=== PATIENT | male | born 1960 | race Caucasian/White ===

== ENCOUNTER 2017-03-24 05:47 | Emergency (ER) | payer OTHER ==
[2017-03-24] MEDS ORDERED: NORMAL SALINE 500 ML IV ONE (06:42)
[2017-03-24 07:02] LABS: ALANINE AMINOTRANSFERASE 36 U/L (21-72); ALBUMIN 3.9 g/dL (3.5-5.0); ALKALINE PHOSPHATASE 69 U/L (38-126); ANION GAP 8 (5-19); ASPARTATE AMINO TRANSFERASE 45 U/L (17-59); BILIRUBIN,DIRECT 0.4 mg/dL (0.0-0.4); BILIRUBIN,TOTAL 0.7 mg/dL (0.2-1.3); BLOOD UREA NITROGEN 14 mg/dL (7-20); CALCIUM 9.7 mg/dL (8.4-10.2); CARBON DIOXIDE 27 mmol/L (22-30); CHLORIDE 108 mmol/L (98-107); CREATINE KINASE 90 U/L (55-170); CREATININE RESULT 0.95 mg/dL (0.52-1.25); GLUCOSE 102 mg/dL (75-110); MAGNESIUM 2.3 mg/dL (1.6-2.3); POTASSIUM 4.6 mmol/L (3.6-5.0); SODIUM 142.8 mmol/L (137-145); TOTAL PROTEIN 7.5 g/dL (6.3-8.2)
[2017-03-24 07:08] LABS: ABSOLUTE BASOPHILS # (AUTO) 0.1 10^3/uL (0.0-0.2); ABSOLUTE EOSINOPHILS # (AUTO) 0.1 10^3/uL (0.0-0.6); ABSOLUTE LYMPHOCYTES (AUTO) 2.8 10^3/uL (0.5-4.7); ABSOLUTE MONOCYTES (AUTO) 0.8 10^3/uL (0.1-1.4); ABSOLUTE NEUT (AUTO) 9.1 10^3/uL (1.7-8.2); BASOPHILS % (AUTO) 0.7 % (0-2); EOSINOPHILS % (AUTO) 0.9 % (0-6); HEMATOCRIT 43.7 % (37.9-51.0); HEMOGLOBIN 14.8 g/dL (13.5-17.0); HGB HCT DIFFERENCE 0.7; LYMPHOCYTES % (AUTO) 21.5 % (13-45); MEAN CORPUSCULAR HEMOGLOBIN 32.3 pg (27.0-33.4); MEAN CORPUSCULAR HGB CONC 33.9 g/dL (32.0-36.0); MEAN CORPUSCULAR VOLUME 95 fl (80-97); MONOCYTES % (AUTO) 6.1 % (3-13); RED BLOOD COUNT 4.58 10^6/uL (4.35-5.55); RED CELL DISTRIBUTION WIDTH 14.7 % (11.5-14.0); SEGMENTED NEUTROPHILS % (AUTO) 70.8 % (42-78); WHITE BLOOD COUNT 12.9 10^3/uL (4.0-10.5)
[2017-03-24 07:13] LABS: CREATINE KINASE MB 1.65 ng/mL (<4.55)
--- NOTE | 2017-03-24 07:16 | RADIOLOGY REPORT (SQ) ---
EXAM DESCRIPTION: CHEST PA/LAT COMPLETED DATE/TIME: 03/24/2017 7:02 am REASON FOR STUDY: syncope COMPARISON: 01/25/2013 EXAM PARAMETERS: NUMBER OF VIEWS: two views TECHNIQUE: Digital Frontal and Lateral radiographic views of the chest acquired. RADIATION DOSE: NA LIMITATIONS: none FINDINGS: LUNGS AND PLEURA: No opacities, masses or pneumothorax. No pleural effusion. MEDIASTINUM AND HILAR STRUCTURES: No masses or contour abnormalities. HEART AND VASCULAR STRUCTURES: Heart normal size. No evidence for failure. BONES: No acute findings. HARDWARE: None in the chest. OTHER: No other significant finding. IMPRESSION: NO SIGNIFICANT RADIOGRAPHIC FINDING IN THE CHEST. TECHNICAL DOCUMENTATION: JOB ID: [id number] [employer]- All Rights Reserved
[2017-03-24 07:17] LABS: TROPONIN I < 0.012 ng/mL
--- NOTE | 2017-03-24 07:27 | ER Document Report ---
ED General - General Chief Complaint: Fainting Stated Complaint: PASSED OUT Time Seen by Provider: 03/24/17 06:19 TRAVEL OUTSIDE OF THE [place] IN LAST 30 DAYS: No - HPI Patient complains to provider of: Syncopal episode Notes: Patient coming in for evaluation of a syncopal episode. Patient states recently had a heart attack in November. Patient is under the care of Dr. Wilson cardiology at [facility]. Patient states recently had echo done of his heart states everything has been improving states that after his heart attack EF was measured at approximately 35%. Patient states no other new pathology patient states he was running on the treadmill this morning states when he came [place] felt funny lightheaded and then had a syncopal episode falling down denies hitting his head states that this lasted for approximately 10 seconds witnessed episode no other serious events no seizure-like activity states patient was alert during the syncopal episode. Patient denies any head pain chest pain abdominal pain prior to or after this episode. Patient is resting comfortably upon my evaluation. No nausea vomiting fever chills no recent trauma no recent travel. - Related Data Allergies/Adverse Reactions: No Known Allergies Allergy (Unverified 01/25/13 01:13) Past Medical History - Social History Smoking Status: Unknown if Ever Smoked Family History: CAD - Immunizations Hx Diphtheria, Pertussis, Tetanus Vaccination: Yes Review of Systems - Review of Systems Constitutional: No symptoms reported EENT: No symptoms reported Cardiovascular: Syncope Respiratory: No symptoms reported Gastrointestinal: No symptoms reported Genitourinary: No symptoms reported Male Genitourinary: No symptoms reported Musculoskeletal: No symptoms reported Skin: No symptoms reported Hematologic/Lymphatic: No symptoms reported Neurological/Psychological: No symptoms reported -: Yes All other systems reviewed and negative Physical Exam - Vital signs Vitals: Resp 16 03/24/17 05:58 Interpretation: Normal - General General appearance: Appears well, Alert - HEENT Head: Normocephalic, Atraumatic Eyes: Normal Pupils: PERRL - Respiratory Respiratory status: No respiratory distress Chest status: Nontender Breath sounds: Normal Chest palpation: Normal - Cardiovascular Rhythm: Regular Heart sounds: Normal auscultation Murmur: No - Abdominal Inspection: Normal Distension: No distension Bowel sounds: Normal Tenderness: Nontender Organomegaly: No organomegaly - Back Back: Normal, Nontender - Extremities General upper extremity: Normal inspection, Nontender, Normal color, Normal ROM , Normal temperature General lower extremity: Normal inspection, Nontender, Normal color, Normal ROM , Normal temperature, Normal weight bearing. No: Cash's sign - Neurological Neuro grossly intact: Yes Cognition: Normal Orientation: AAOx4 Blanca Coma Scale Eye Opening: Spontaneous Blanca Coma Scale Verbal: Oriented Blanca Coma Scale Motor: Obeys Commands Blanca Coma Scale Total: 15 Speech: Normal Motor strength normal: LUE, RUE, LLE, RLE Sensory: Normal - Psychological Associated symptoms: Normal affect, Normal mood - Skin Skin Temperature: Warm Skin Moisture: Dry Skin Color: Normal Course - Re-evaluation Re-evalutation: 03/24/17 07:24 Patient EKG does show a minimal ST segment elevation in V2 V3. However old EKG is greater than 3 years. Patient this time has no chest pain denies any shortness of breath at this time patient does not meet any STEMI criteria. Orthostatics are positive for an increase in patient's heart rate will give a bolus 500 cc we will see what laboratory studies show more likely will consult with his cardiology team at [facility]. 03/24/17 07:27 03/24/17 08:[address] Delarosa at this time agreed with second troponin negative patient is to follow-up in their office. Patient has a follow-up appointment with cardiology tomorrow. Otherwise patient on reevaluation is resting comfortably. 03/24/17 14:37 Second troponin was negative. Patient was able to ablate around the ER without difficulty. Possible etiology vasovagal versus dehydration. Patient will be discharged on follow-up with his cardiology team tomorrow. - Vital Signs Vital signs: Temp Pulse Resp BP Pulse Ox 60 17 110/62 98 03/24/17 06:35 03/24/17 13:01 03/24/17 13:01 03/24/17 13:01 - Laboratory Result Diagrams: 03/24/17 06:35 03/24/17 06:35 Laboratory results interpreted by me: 03/24/17 03/24/17 03/24/17 06:35 06:35 10:32 WBC 12.9 H RDW 14.7 H Absolute Neutrophils 9.1 H Chloride 108 H Urine Blood SMALL H Discharge - Discharge Clinical Impression: Syncope Qualifiers: Syncope type: unspecified Qualified Code(s): R55 - Syncope and collapse Condition: Good Disposition: HOME, SELF-CARE Instructions: Syncopal Episode ([facility]) Additional Instructions: I discussed your case with on-call car hostler Dr. Washington bey recommends follow -up tomorrow. Please drink plenty of water return to the ER symptoms worsen. Continue home medications as prescribed. Forms: Return to Work Referrals: MELISSA JACOBSEN MD [Primary Care Provider] - Follow up as needed
--- NOTE | 2017-03-24 08:08 | EKG REPORT ---
SEVERITY:- ABNORMAL ECG - SINUS RHYTHM FIRST DEGREE AV BLOCK ANTERIOR INFARCT, AGE INDETERMINATE : Confirmed by: Shalini Mckee 24-Mar-2017 08:07:36
[2017-03-24 13:07] LABS: APPEARANCE,URINE CLEAR; BILIRUBIN,URINE NEGATIVE (NEGATIVE); GLUCOSE, URINE NEGATIVE (NEGATIVE); KETONES,URINE NEGATIVE (NEGATIVE); LEUKOCYTE ESTERASE,URINE NEGATIVE (NEGATIVE); NITRITE,URINE NEGATIVE (NEGATIVE); PROTEIN,URINE NEGATIVE (NEGATIVE); UROBILINOGEN,URINE NEGATIVE mg/dL (<2.0)
[2017-03-24 13:37] VITALS: BP 110/62
== END 2017-03-24 13:36 | disposition home or self-care (01) ==
LOC: ER 05:47
DX: R55 Syncope and collapse (principal); I25.2 Old myocardial infarction; Z82.49 Family history of ischemic heart disease and other diseases of the circulatory system
CPT/HCPCS: 93005; 99284; 96360; 36415; 82553; 82550; 83735; 85025; 80053; 81001; 84484; 83880; 71020; 93010; J7040